=== PATIENT | female | born 1955 | race Two or more races ===

== ENCOUNTER 2024-08-04 16:57 | Emergency (ER) | payer MEDICARE, OTHER ==
[~2024-08-04] VITALS: Ht 152.4 cm; Wt 56.7 kg
[2024-08-04] MEDS ORDERED: BUPIVACAINE MPF W/EPI 0.25% 30 ML VIAL ONE (17:30)
[2024-08-04] MEDS ORDERED: TDAP [DIPH/PERTUSSIS/TET] 0.5 ML VIAL IM ONE (18:00)
[2024-08-04] MEDS: BUPIVACAINE 0.25% 75 MG/30 ML VIAL IJ ONE (18:02)
[2024-08-04] MEDS: TDAP [DIPH/PERTUSSIS/TET] 0.5 ML VIAL IM ONE (18:28)
[2024-08-04] MEDS ORDERED: AMOX-430 PO (18:58)
[2024-08-04 19:06] VITALS: BP 155/87; TEMP 98.5; O2SAT 98
== END 2024-08-04 19:07 | disposition home or self-care (01) ==
LOC: ER 17:12
DX: S62.632A Displaced fracture of distal phalanx of right middle finger, initial encounter for closed fracture (principal); S61.212A Laceration without foreign body of right middle finger without damage to nail, initial encounter; W23.2XXA Caught, crushed, jammed or pinched between a moving and stationary object, initial encounter; Y93.89 Activity, other specified; Y92.59 Other trade areas as the place of occurrence of the external cause; Y99.8 Other external cause status
CPT/HCPCS: 12001; 73130; 90471; 90715; 99283; A6403; J3490